=== PATIENT | male | born 1985 | race Caucasian/White ===

== ENCOUNTER 2020-01-13 09:47 | Emergency (ER) | payer OTHER ==
[~2020-01-13] VITALS: Ht 170.2 cm; Wt 72.6 kg
[2020-01-13 09:47] VITALS: BP_SYST 116
== END 2020-01-13 10:59 | disposition home or self-care (01) ==
LOC: EDBD → SED 09:47
DX: R20.0 Anesthesia of skin (principal); F17.290 Nicotine dependence, other tobacco product, uncomplicated; F12.90 Cannabis use, unspecified, uncomplicated
CPT/HCPCS: 99281

== ENCOUNTER 2020-01-14 14:26 | Emergency (ER) | payer OTHER ==
[~2020-01-14] VITALS: Ht 172.7 cm; Wt 72.6 kg
[2020-01-14 14:40] VITALS: BP_SYST 113
[2020-01-14 15:30] VITALS: BP_SYST 113
== END 2020-01-14 15:30 | disposition home or self-care (01) ==
LOC: EDBD 14:26 → SED 14:26
DX: S93.402A Sprain of unspecified ligament of left ankle, initial encounter (principal); X58.XXXA Exposure to other specified factors, initial encounter; Y93.89 Activity, other specified; Y92.89 Other specified places as the place of occurrence of the external cause; Y99.8 Other external cause status
CPT/HCPCS: 99283